=== PATIENT | female | born 1945 | race Caucasian/White ===

== ENCOUNTER 2018-07-25 22:16 | Observation (INO) | payer OTHER ==
[2018-07-25] MEDS ORDERED: fentaNYL 100 MCG/2 ML INJ IVP ONE (22:23)
[2018-07-25] MEDS ORDERED: NS 1,000 ML IV ONE (22:23)
[2018-07-25] MEDS ORDERED: ONDANSETRON 4 MG/2 ML VIAL IVP ONE (22:23)
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
[2018-07-25] MEDS ORDERED: IOPAMIDOL (ISOVUE-300) 100 ML BTL ONE (22:35)
[2018-07-25 23:03] LABS: PLATELET COUNT 261 10^3/uL (150-400)
[2018-07-25 23:11] LABS: INR 0.94 (0.83-1.16); PROTIME(PATIENT) 12.2 SEC (12.0-15.0)
[2018-07-26] MEDS ORDERED: fentaNYL 100 MCG/2 ML INJ ONE (00:03)
[2018-07-26] MEDS ORDERED: fentaNYL 100 MCG/2 ML INJ IVP ONE ×2 (00:04→00:30)
[2018-07-26] MEDS ORDERED: ZOLPIDEM TARTRATE 5 MG TAB PO PRN (01:21)
[2018-07-26] MEDS ORDERED: ACETAMINOPHEN 325 MG TAB PO PRN (01:21)
[2018-07-26] MEDS ORDERED: HYDROCODONE/APAP 5/325 TAB PO PRN (01:21)
[2018-07-26] MEDS ORDERED: ONDANSETRON 4 MG/2 ML VIAL IVP PRN (01:21)
[2018-07-26] MEDS ORDERED: ONDANSETRON DISINTEGRATING 4 MG TAB PO PRN (01:21)
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
[2018-07-26] MEDS ORDERED: OXYCODONE/APAP 5/325 TAB PO PRN (01:29)
[2018-07-26] MEDS ORDERED: D5W 1/2 NS 1,000 ML IV SCH (01:30)
[2018-07-26 06:17] LABS: PLATELET COUNT 211 10^3/uL (150-400)
[2018-07-26] MEDS ORDERED: SENNOSIDES 1 TAB PO PRN (08:13)
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
[2018-07-26] MEDS: HYDROCODONE/APAP 5/325 TAB PO PRN ×2 (13:44→19:52)
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
[2018-07-27 05:37] LABS: PLATELET COUNT 199 10^3/uL (150-400)
--- NOTE | 2018-07-27 07:46 | CPEKG ---
Test Reason : OPEN Blood Pressure : / mmHG Vent. Rate : 079 BPM Atrial Rate : 081 BPM P-R Int : 165 ms QRS Dur : 081 ms QT Int : 369 ms P-R-T Axes : 074 -10 054 degrees QTc Int : 424 ms Sinus rhythm Ventricular premature complex Confirmed by Carlos Gerber ([id number]) on 07/27/2018 7:45:57 AM Referred By: Deniz Sepulveda Confirmed By:Carlos Gerber
[2018-07-27 08:44] VITALS: BP 127/73
[2018-07-27] MEDS: HYDROCODONE/APAP 5/325 TAB PO PRN (09:54)
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
== END 2018-07-27 10:20 | disposition home or self-care (01) ==
LOC: EDUNIT# → INTOOBSV 23:48 → F2N 07-26 00:53
PROVIDERS: ADMIT Surgery; ATTEND Surgery
DX: S22.22XA Fracture of body of sternum, initial encounter for closed fracture (principal); S22.42XA Multiple fractures of ribs, left side, initial encounter for closed fracture; S27.321A Contusion of lung, unilateral, initial encounter; R09.02 Hypoxemia; R91.8 Other nonspecific abnormal finding of lung field; E86.9 Volume depletion, unspecified; V47.6XXA Car passenger injured in collision with fixed or stationary object in traffic accident, initial encounter; Y92.411 Interstate highway as the place of occurrence of the external cause; Y93.89 Activity, other specified
CPT/HCPCS: 70450; 71045; 71260; 72125; 74177; 92523; 93005; 96361; 96374; 96375; 96376; 97162; 97166; 99291; G0378; 82435-PO; 82565-PO; 82947-PO; 84132-PO; 84295-PO; 84520-PO; 85014-ER; G0390; G0480; J2270; J2405; J3010; L0174; Q9967

== ENCOUNTER → 2018-08-06 | Outpatient (CLI) | payer OTHER | LOC: FIMAGING 13:11 | PROVIDERS: ATTEND Surgery | DX: S22.20XD Unspecified fracture of sternum, subsequent encounter for fracture with routine healing (principal); J90 Pleural effusion, not elsewhere classified; M79.641 Pain in right hand ==

== ENCOUNTER → 2018-08-08 | Outpatient (CLI) | payer OTHER | LOC: FIMAGING 10:04 → EDSTATUS 10:06 → FIMAGING 10:13 | PROVIDERS: ATTEND Physician Assistant Surgical | DX: M25.562 Pain in left knee (principal); G89.18 Other acute postprocedural pain; Z96.652 Presence of left artificial knee joint ==

== ENCOUNTER → 2018-08-20 | Outpatient (CLI) | payer OTHER | LOC: FIMAGING 12:25 ==